=== PATIENT | female | born 1990 | race Caucasian/White ===

== ENCOUNTER 2020-01-13 14:11 | Day surgery (SDC) | payer SELFPAY ==
[2020-01-13 08:40] VITALS: BMI 39.6
[~2020-01-13 14:11] MED LIST: BACITRACIN 15 GM TUBE TOPICAL OINTMENT ONE; BUPIVACAINE HCL/PF 0.25% (2.5MG/ML) 10 ML VIAL IJ ONE; BUPIVACAINE HCL/PF 0.25% (2.5MG/ML) 10 ML VIAL ONE; BUPIVACAINE LIPOSOME/PF (EXPAREL) 266 MG/20 ML VIAL NR ONE; BUPIVACAINE LIPOSOME/PF (EXPAREL) 266 MG/20 ML VIAL ONE; EPINEPHrine/PF 1 MG/1 ML (1:1,000) AMPULE ONE; GLYCOPYRROLATE 0.2 MG/1 ML VIAL ONE; HEPARIN NA (PORCINE) 5,000 UNITS/ML 1ML VIAL ONE; HEPARIN NA (PORCINE) 5,000 UNITS/ML 1ML VIAL SQ ONE; HYDROmorphone HCL/PF 1 MG/ML VIAL ONE; LIDOCAINE HCL 1%, 10 MG/ML (20ML VIAL) NR ONE; LIDOCAINE HCL 1%, 10 MG/ML (20ML VIAL) ONE; MIDAZOLAM HCL 2 MG/2 ML SINGLE DOSE VIAL ONE; NEOSTIGMINE METHYLSULFATE 0.5 MG/ML - 10 ML MDV ONE; NITROGLYCERIN 2% OINTMENT - 1GM PACKET TD ONE; ONDANSETRON 4 MG/2 ML VIAL IVPB PRN; PROPOFOL 20 ML ONE; ROCURONIUM BROMIDE 50 MG/5 ML VIAL ONE; SEVOFLURANE 250 ML BTL ONE; ceFAZolin SODIUM 1 GM VIAL ONE; fentaNYL CITRATE 250 MCG/5 ML VIAL ONE; oxyCODONE HCL 5 MG TABLET PO PRN
[2020-01-13] MEDS ORDERED: oxyCODONE HCL 5 MG TABLET PO PRN ×2 (14:15)
[2020-01-13] MEDS ORDERED: PROMETHAZINE HCL 25 MG/1 ML VIAL IVPUSH PRN (14:15)
[2020-01-13] MEDS ORDERED: LACTATED RINGERS SOLUTION 1,000 ML IV SCH (14:15)
[2020-01-13] MEDS: ONDANSETRON 4 MG/2 ML VIAL IVPUSH PRN ×2 (15:00→20:06)
[2020-01-13] MEDS ORDERED: ONDANSETRON 4 MG/2 ML VIAL ONE (15:09)
[2020-01-13] MEDS: CEFAZOLIN 1 GM/D5W 1 GM/50 ML BAG IVPB SCH (20:06)
[2020-01-13] MEDS: MORPHINE SULFATE 2 MG/ML VIAL IVPUSH PRN (20:07)
[2020-01-13] MEDS ORDERED: HEPARIN NA (PORCINE) 5,000 UNITS/ML 1ML VIAL SQ SCH (22:00)
[2020-01-14] MEDS: CEFAZOLIN 1 GM/D5W 1 GM/50 ML BAG IVPB SCH ×3 (02:04→14:22)
[2020-01-14] MEDS: MORPHINE SULFATE 2 MG/ML VIAL IVPUSH PRN (02:14)
[2020-01-14] MEDS ORDERED: SODIUM CHLORIDE 0.45% 1,000 ML IV SCH (07:30)
[2020-01-14] MEDS ORDERED: HEPARIN NA (PORCINE) 5,000 UNITS/ML 1ML VIAL SQ SCH (08:00)
[2020-01-14 14:09] VITALS: BP 122/68; PULSE 91; TEMP 99
== END 2020-01-14 17:16 | disposition home or self-care (01) ==
LOC: FASUSAT 14:11 → FM/S 14:11 → FASUSAT 01-14 17:16
PROVIDERS: ATTEND Plastic Surgery
PROC: 0J083ZZ Alteration of Abdomen Subcutaneous Tissue and Fascia, Percutaneous Approach (ICD-10-PCS; 2020-01-13)
PROC: 0J080ZZ Alteration of Abdomen Subcutaneous Tissue and Fascia, Open Approach (ICD-10-PCS; principal; 2020-01-13 10:09)
DX: E88.1 Lipodystrophy, not elsewhere classified (principal); M95.8 Other specified acquired deformities of musculoskeletal system
CPT/HCPCS: 84703; 88300-TC; 93970-TC; 94760; J1644